=== PATIENT | female | born 1945 | race Caucasian/White ===

== ENCOUNTER → 2023-01-24 | Day surgery (SDC) | payer OTHER | END | disposition home or self-care (01) | LOC: JRADUS-SUR 10:38 | PROVIDERS: ATTEND Surgery Surgical Oncology | PROC: BH01ZZZ Plain Radiography of Left Breast (ICD-10-PCS; principal; 2023-01-24) | DX: C50.912 Malignant neoplasm of unspecified site of left female breast (principal) | CPT/HCPCS: 19281; A4648 ==

== ENCOUNTER 2023-01-26 04:48 | Day surgery (SDC) | payer OTHER ==
[2023-01-21 16:13] VITALS: BMI 21.6
[2023-01-26] MEDS ORDERED: FENTANYL CITRATE/PF 50 MCG/ML VIAL ONE ×3 (08:30→10:28)
[2023-01-26] MEDS ORDERED: MIDAZOLAM HCL 2 MG/2 ML SINGLE DOSE VIAL ONE (08:30)
[2023-01-26] MEDS ORDERED: BUPIVACAINE HCL/PF 0.5% (5MG/ML) 10 ML VIAL ONE (09:06)
[2023-01-26] MEDS ORDERED: SUCCINYLCHOLINE CHLORIDE 200 MG/10 ML SYRINGE ONE (09:30)
[2023-01-26] MEDS ORDERED: PROPOFOL 20 ML ONE (09:34)
[2023-01-26] MEDS ORDERED: BUPIVACAINE HCL/PF 0.25% (2.5MG/ML) 10 ML VIAL IJ ONE (09:50)
[2023-01-26] MEDS ORDERED: oxyCODONE HCL 5 MG TABLET PO PRN (10:13)
[2023-01-26] MEDS ORDERED: LACTATED RINGERS SOLUTION 1,000 ML IV SCH (10:15)
[2023-01-26 11:25] VITALS: RESP 18
[2023-01-26 12:41] VITALS: BP 113/59; PULSE 82; TEMP 97.8
== END 2023-01-26 12:45 | disposition home or self-care (01) ==
LOC: JASU-SURG 04:48
PROVIDERS: ATTEND Surgery Surgical Oncology
PROC: 0HBU0ZZ Excision of Left Breast, Open Approach (ICD-10-PCS; principal; 2023-01-26 09:30)
DX: C50.912 Malignant neoplasm of unspecified site of left female breast (principal)
CPT/HCPCS: 76098-TC-FY; 88307-TC; 88342-TC; 94760